=== PATIENT | female | born 2000 | race Caucasian/White ===

== ENCOUNTER → 2021-08-04 | Outpatient (CLI) | payer OTHER ==
[~2021-08-04] MED LIST: ZOFRAN ODT 4 MG4 MG SL
[2021-08-05 11:14] LABS: RHEUMATOID ARTHRITIS FACTOR <10.0 IU/mL (0.0-13.9)
[2021-08-05 12:14] LABS: VITAMIN D, 25-HYDROXY 38.2 ng/mL (30.0-100.0)
== END ==
LOC: LAB 10:31
PROVIDERS: Nurse Practitioner Family
DX: D89.9 Disorder involving the immune mechanism, unspecified (principal); M25.50 Pain in unspecified joint; R76.8 Other specified abnormal immunological findings in serum; R53.83 Other fatigue; M79.10 Myalgia, unspecified site
CPT/HCPCS: 36415; 82728; 83520; 84439; 84443; 85652; 86140; 86200; 86431